=== PATIENT | female | born 1995 | race African-American/Black ===

== ENCOUNTER 2017-10-12 12:15 | Emergency (ER) | payer MEDICAID ==
[~2017-10-12] VITALS: Ht 172.7 cm; Wt 86.0 kg
[2017-10-12 12:19] VITALS: BP 105/77
[2017-10-12] MEDS ORDERED: BACITRACIN ZINC OINT UDPKT TOP ONE (12:45)
[2017-10-12] MEDS ORDERED: LIDOCAINE HCL 1% 20ML VIAL (Pyxis) INJ MC ONE (12:45)
[2017-10-12] MEDS ORDERED: TETANUS, DIPHTHERIA, PERTUSSIS VAC/PF 0.5ML (>7YR OLD) IM ONE (12:45)
[2017-10-12] MEDS ORDERED: IBUPROFEN 600MG TABLET PO ONE (12:45)
== END 2017-10-12 15:22 | disposition home or self-care (01) ==
LOC: ER 12:53
DX: S91.051A Open bite, right ankle, initial encounter (principal); W54.0XXA Bitten by dog, initial encounter; Y93.89 Activity, other specified; Y99.8 Other external cause status; Y92.89 Other specified places as the place of occurrence of the external cause
CPT/HCPCS: 12001; 73610; 81025; 90471; 90715; 99284; J3490